=== PATIENT | female | born 1985 | race Caucasian/White ===

== ENCOUNTER 2025-04-03 05:02 | Inpatient (IN) | payer OTHER, SELFPAY ==
[2025-04-03] VITALS (218 sets, daily range): BP systolic 100–135; BP diastolic 48–89; PULSE 64–174; RESP 18; TEMP 36.8–37.6; O2SAT 93–100; BMI 33.8
--- NOTE | 2025-04-03 05:22 | LDADM ---
This patient, Peace Ortiz, was admitted to Labor/Delivery/Recovery 103 on 04/03/25 at 05:02. Plans for labor, pain management and were discussed with patient. Patient/family oriented to hospital policies and general routines including ID bracelet, bed and alarms, visiting hours, pain management, procedures, bathroom and other care routines, personal items, smoking policy, room service/diet and guest tray routines, security routines, and visiting hours. Patient/Family are encouraged to report perceived risks to care and to ask questions if they do not understand what they are told or what they should do. See OBIX for further documentation.
[2025-04-03] MEDS: LACTATED RINGERS 1,000 ML 125 ML IV CONT ×2 (05:49→15:34)
[2025-04-03] MEDS: AMPICILLIN SODIUM 2 GM in SODIUM CHLORIDE 0.9% IV 100 ML 200 ML IVPB (05:50)
[2025-04-03 05:52] LABS: Hematocrit 37.9 % (37.0-47.0); Hemoglobin 12.1 g/dL (12.0-15.0); Immature Granulocyte Percent A 1.0 % (0-0.5); Lymphocytes Absolute Auto 2.34 K/mm3 (0.9-3.2); Mean Corpuscular HGB Conc 31.9 g/dl (32-36); Mean Corpuscular Hemoglobin 30.6 pg (26-34); Mean Corpuscular Volume 95.9 fl (80-100); Nucleated Red Blood Cells Absolute Auto 0.000 K/mm3 (0.0-0.012); Nucleated Red Blood Cells Perc 0.0 % (0.0-0.2); Platelet Count Result 284 k/mm3 (150-375); Red Blood Count 3.95 M/mm3 (4.2-5.4); White Blood Count 11.4 K/mm3 (4.5-10.0)
[2025-04-03] MEDS: OXYTOCIN 30 UNITS/NS 500 ML 30 UNITS/500 ML BAG IV CONT (06:13)
[2025-04-03 06:34] LABS: Syphilis IgG/IgM Antibody Non-Reactive (Nonreactive)
--- NOTE | 2025-04-03 07:40 | WPDOBADMIT ---
Obstetrics - Admit Note Admission Note: record reviewed. No pertinent additions to the history and/or any subsequent changes in the physical findings that are not consistent with the expected course of the were found. Additions to the history and/or subsequent changes in the physical findings follow. Here for MIL. Cervix 1-2/50/-2 AROM with copious clear fluid. FHTs cat I.Pitocin per protocol. Plans epidural.
[2025-04-03] MEDS: AMPICILLIN SODIUM 1 GM in SODIUM CHLORIDE 0.9% IV 50 ML 100 ML IVPB ×2 (09:57→14:10)
[2025-04-03] MEDS: CALCIUM CARBONATE (TUMS) 500 MG (200 MG ELEMENTAL) PO (12:27)
--- NOTE | 2025-04-03 13:11 | WPDANESEPPF ---
Anes - Initial Pre Proc Eval Procedure: labor epidural Date/Time: 04/03/25 13:11 Surgeon: Nunu Sierra MD Pre Op Diagnosis: labor pain Pre Op Diagnosis: IOL Patient Data Age: 39 Gender: F Height: 1.63 m Weight: 89.5 kg Last Vital Signs Temp 36.8 C 04/03/25 12:13 Pulse 79 04/03/25 13:00 BP 115/68 04/03/25 13:00 Pulse Ox 100 04/03/25 13:10 O2 Del Method Room Air 04/03/25 05:22 Allergies Allergy/AdvReac Type Severity Reaction Status Date / Time No Known Allergies Allergy Verified 04/03/25 05:31 Home Medications ?Medication ?Instructions ?Recorded ?Confirmed ?Type vit no.95-ferrous 1 tablet PO DAILY 03/11/25 04/03/25 History fumarate 28 mg-folic acid 800 mcg tablet () aspirin 81 mg chewable tablet 81 mg PO DAILY 04/03/25 04/03/25 History (Johanna Chewable Low Dose Aspirin) calcium 100 mg capsule mg PO DAILY 04/03/25 History ferrous sulfate 325 mg (65 mg 325 mg PO DAILY 04/03/25 04/03/25 History iron) tablet (iron) owmav-2u-hyf-epa-fish oil-vit D3 cap PO DAILY 04/03/25 History 350 mg-400 mg-1,000 unit capsule Laboratory Tests 04/03/25 05:19 WBC 11.4 H K/mm3 (4.5-10.0) RBC 3.95 L M/mm3 (4.2-5.4) Hgb 12.1 g/dL (12.0-15.0) Hct 37.9 % (37.0-47.0) MCV 95.9 fl (80-100) MCH 30.6 pg (26-34) MCHC 31.9 L g/dl (32-36) RDW 14.3 % (11.5-14.5) Plt Count 284 k/mm3 (150-375) MPV 9.7 fl (7.4-10.4) Immature Gran % (Auto) 1.0 H % (0-0.5) Neut % (Auto) 69.0 % (45.5-73.1) Lymph % (Auto) 20.5 % (18.3-44.2) [place] % (Auto) 7.8 % (2.6-8.5) Eos % (Auto) 1.2 % (0-4.4) Baso % (Auto) 0.5 % (0.2-1.2) Lymph # (Auto) 2.34 K/mm3 (0.9-3.2) [place] # (Auto) 0.9 H K/mm3 (0.1-0.6) Eos # (Auto) 0.1 K/mm3 (0-0.3) Baso # (Auto) 0.1 K/mm3 (0.0-0.1) Abs Immat Gran (auto) 0.11 H K/mm3 (0.00-0.031) Absolute Neuts (auto) 7.9 H K/mm3 (1.3-6.7) Absolute Nucleated RBC 0.000 K/mm3 (0.0-0.012) Nucleated RBC % 0.0 % (0.0-0.2) Syphilis IgG/IgM Ab Non-reactive (Nonreactive) Blood Type A Positive Antibody Screen Negative Patient hx anesthesia problems: none Family hx anesthesia problems: none Results Review: All pre-operative results and documents have been reviewed as part of the pre-operative evaluation. [facility] Family History Family History (Updated 03/11/25 @ 12:24 by Mey Au RN) Other Coronary arteriosclerosis Hypertension Social History Social History Smoking status: Never smoker Second hand tobacco smoke exposure: No Substance use: never Lack of Transportation: No Lack of Food: Never True Current Housing: I Have Housing Concerned About Future Housing: No Difficulty Paying Gas/Electric Bills: No Difficulty Paying for Meds: No Currently Unemployed: No Education: High School Diploma/GED Difficulty w/ Childcare or Family Care: No Spiritual care concerns: No Anes - Eval Final PreProcedure Day of Procedure 04/03/25 13:11 Patient weight: obese ASA classification: II Anesthetic plan: proceed Anesthesia type and monitoring: regional epidural and standard monitoring Results Review: All pre-operative results and documents have been reviewed as part of the pre-operative evaluation. Informed Consent: The patient's anesthetic plan and its attendant risks and benefits were discussed with the patient/family/POA. Questions were solicited and answers provided to the satisfaction of the patient/family/POA.
[2025-04-03] MEDS: SODIUM CHLORIDE 0.9% IV 300 ML 600 ML I-UTERINE (14:13)
[2025-04-03] MEDS: SODIUM CHLORIDE 0.9% IV 1,000 ML 125 ML I-UTERINE (14:46)
--- NOTE | 2025-04-03 16:25 | P.PCNOB_ITS ---
OB - Vaginal Delivery Note Procedure Delivery date: 04/03/25 Events: Elective Induction of Labor Induction method: AROM and Per Pitocin Protocol Delivery monitor: External FHT and Internal Uterine Route of delivery: Episiotomy description: None Laceration Description: Periurethral and Perineal - 1st Degree Delivery repair: vicryl (3-0) Specimen: No Quantitative Blood Loss (ml): 100 Anesthesia type: Epidural Disposition: Floor Complications: No immediate complications [place] Baby Date of : 04/03/25 Gestational Age by Date: 39 gender: Male presentation: vertex position: Right Occiput Anterior Placenta delivery description: Spontaneous Cord Vessel Description: 3 Vessels, Nuchal Cord, Delayed Cord Clamping and Around Extremity score one minute: 8 score five minutes: 9
--- NOTE | 2025-04-03 16:26 | PM.OBDSVD ---
DS: Admitting Diagnosis Discharge Date 04/04/25 Admitting Diagnosis IUP 39 wks MIL AMA DS: Discharge Diagnosis Discharge Diagnosis (1) (normal spontaneous vaginal delivery): Code(s): O80 - Encounter for full-term uncomplicated delivery Status: Acute OB - DS: Summary OB Procedures : NST and Ultrasound OB Procedures Intrapartum: Spontaneous Vag Delivery OB Procedures: : None Peripartum Data Infant Delivery Method: Natural Vaginal Laceration Description: Periurethral and Perineal - 1st Degree Episiotomy description: None complications: none Status at Discharge Functional status at discharge: independent ambulation Overall status at discharge: patient is progressing back to baseline Time Spent with Patient Time attestation: Total time spent providing and/or coordinating discharge services: DS: Data Data Completed and Pending Labs on day of discharge: Labs from last 24 hours 04/03/25 05:19 WBC 11.4 H RBC 3.95 L Hgb 12.1 Hct 37.9 MCV 95.9 MCH 30.6 MCHC 31.9 L RDW 14.3 Plt Count 284 MPV 9.7 Immature Gran % (Auto) 1.0 H Neut % (Auto) 69.0 Lymph % (Auto) 20.5 [place] % (Auto) 7.8 Eos % (Auto) 1.2 Baso % (Auto) 0.5 Lymph # (Auto) 2.34 [place] # (Auto) 0.9 H Eos # (Auto) 0.1 Baso # (Auto) 0.1 Abs Immat Gran (auto) 0.11 H Absolute Neuts (auto) 7.9 H Absolute Nucleated RBC 0.000 Nucleated RBC % 0.0 Syphilis IgG/IgM Ab Non-reactive Blood Type A Positive Antibody Screen Negative Discharge Plan Discharge Attending physician on discharge: Nunu Sierra Discharging Clinician: Nunu Sierra Patient Disposition: Home Activity: may shower, may drive after 2 weeks and pelvic rest Diet: regular Patient Instructions: Antibiotic Form Patient Language: Mosotho Stand Alone Forms: General Discharge Information Follow-up/Referrals: Nunu Sierra MD [Physician, [employer]] - 6 Weeks Discharge Medications: New norethindrone-e.estradiol-iron 1 mg-20 mcg (24)/75 mg (4) capsule 1 cap PO DAILY Qty: 84 1RF Rx Instructions: start week 3 on Monday Discontinued PNV no.95-ferrous fumarate-FA [] 28 mg iron- 800 mcg tablet 1 tablet PO DAILY ferrous sulfate [iron] 325 mg (65 mg iron) tablet 325 mg PO DAILY [id number]-[id number]-epa-fish oil-D3 350 mg-400 mg- 1,000 unit capsule PO DAILY calcium 100 mg capsule PO DAILY aspirin [Johanna Chewable Aspirin] 81 mg tablet,chewable 81 mg PO DAILY Date of admission: 04/03/25 05:02 Primary Care Provider: PHYSICIAN,HELPDESK TECHNICIAN Admitting Provider: Nunu Sierra Attending physician on admission: Nunu Sierra Condition: Stable
[2025-04-03] MEDS: OXYTOCIN 30 UNITS/NS 500 ML 30 UNITS/500 ML BAG 125 UNITS IV CONT (16:42)
[2025-04-03] MEDS: BENZOCAINE 20% AER SPR (*SP) 56 GM CAN 1 SPRAY TOPICAL (18:58)
[2025-04-03] MEDS: WITCH HAZEL 40 PADS 1 PAD TOPICAL (18:58)
--- NOTE | 2025-04-03 19:22 | OBPPTRN ---
Patient transferred to post room # via ( ). Support person present. Oriented to unit, room, information board, rooming in, admission packet and security measures. Patient verbalizes understanding.
--- NOTE | 2025-04-03 19:22 | OBPPTRN ---
Patient transferred to post room #286 via wheelchair. Support person present. Oriented to unit, room, information board, rooming in, admission packet and security measures. Patient verbalizes understanding.
[2025-04-04 00:10] VITALS: BP 117/73; PULSE 88; RESP 16; TEMP 36.8; O2SAT 97
[2025-04-04 03:40] VITALS: BP 102/66; PULSE 80; RESP 16; TEMP 37.1; O2SAT 97
[2025-04-04 05:32] LABS: Hematocrit 33.3 % (37.0-47.0); Hemoglobin 10.7 g/dL (12.0-15.0)
[2025-04-04 07:30] VITALS: BP 112/74; PULSE 81; RESP 18; TEMP 37.3; O2SAT 96
[2025-04-04] MEDS: IBUPROFEN 600 MG TABLET PO (09:11)
--- NOTE | 2025-04-04 09:30 | WPDANESPN ---
Anes - Prog Note Post-Op Date/Time: 04/04/25 09:30 Cardiovascular status: normal Respiratory status: normal Airway patency: baseline Mental status: baseline Post-Op hydration status: normal Vital Signs: Last Vital Signs Temp 37.3 C 04/04/25 07:30 Pulse 81 04/04/25 07:30 Resp 18 04/04/25 07:30 BP 112/74 04/04/25 07:30 Pulse Ox 96 04/04/25 07:30 O2 Del Method Room Air 04/04/25 07:40 Pain Score (VAS): 2 I/O: Intake & Output 04/03/25 04/04/25 04/04/25 23:59 07:59 15:59 Intake Total 0 Output Total 100 Balance -100 0 Laboratory Tests 04/04/25 04:26 04/04/25 04:26 Hgb 10.7 L Hct 33.3 L Post-procedural complaints: none Patient Feedback: Patient satisfied with anesthetic care.
[2025-04-04 12:15] VITALS: BP 110/73; PULSE 77; RESP 18; TEMP 37.4; O2SAT 96
--- NOTE | 2025-04-04 13:02 | P.PNOB_ITS ---
OB - PN: Subj Subjective Date/time seen: 04/04/25 13:02 Patient comments: no complaints and pain well controlled baby status: doing well OB - PN: Obj Data Labs 04/04/25 04:26 Labs: Laboratory Results - last 24 hr 04/04/25 04:26 Hgb 10.7 L Hct 33.3 L OB - PN A/P Plan day: 1 Plan: routine care, discharge home, follow up 6 weeks and other (oc's until vasectomy) Time Spent With Patient Time: Total time spent is greater than 50% in coordination of care (as documented) at patient's floor/unit and/or counseling patient: Exam 2 : Bimanual exam- vagina & uterus: other (Uterus firm, nt @U)
[2025-04-07 11:29] VITALS: BP 115/85; PULSE 89; RESP 18; TEMP 36.6; O2SAT 100
== END 2025-04-04 17:58 | disposition home or self-care (01) | DRG 807 ==
LOC: ANHLDR 16:28 → ANHOB2 19:39
PROVIDERS: Admitting Provider Obstetrics & Gynecology Gynecology; Visit Provider Obstetrics & Gynecology Gynecology
DX: O99.824 Streptococcus B carrier state complicating childbirth (principal); Z37.0 Single live birth; O69.81X0 Labor and delivery complicated by cord around neck, without compression, not applicable or unspecified; O70.0 First degree perineal laceration during delivery; Z3A.39 39 weeks gestation of pregnancy
CPT/HCPCS: 36415; 85014; 85018; 85025; 86593; 86850; 86900; 86901; A9270; J0290; J2590; J2795; J7030; J7120